=== PATIENT | female | born 1990 | race Caucasian/White ===

== ENCOUNTER 2017-07-01 13:35 | Emergency (ER) | payer BC ==
[2017-07-01 14:31] LABS: Bilirubin Negative (Negative); Blood, Urine Negative (Negative); Glucose, Urine (Dipstick) Negative (Negative); Ketone, Urine Negative (Negative); Nitrite Negative (Negative); Protein, Urine (Dipstick) Negative (Neg-Trace); Urobilinogen 0.2 mg/dL (0.2-1.0)
[2017-07-01 14:47] LABS: #Eosinphils 0.1 thou/uL (0.0-0.7); #Lymphocytes 2.5 thou/uL (1.20-3.40); #Monocytes 0.5 thou/uL (0.11-0.59); #Neutrophils 7.4 thou/uL (1.40-6.50); %Basophils 0.3 % (0.0-1.0); %Eosinophils 0.7 % (0.0-10.0); %Lymphocytes 24.1 % (21.0-51.0); %Monocytes 5.1 % (0.0-10.0); Hematocrit 41.8 % (36.0-47.0); Red Blood Cell (RBC) Count 4.34 mill/uL (4.20-5.40); White Blood Cell (WBC) Count 10.5 thou/uL (4.8-10.8)
[2017-07-01 15:17] LABS: Anion Gap 12 mmol/L (10-20); BUN (Urea Nitrogen) 8 mg/dL (7.0-18.7); Calc. Creatinine Clearance 0 mL/min (70-130); Calcium 9.3 mg/dL (7.8-10.44); Carbon Dioxide 23 mmol/L (22-29); Chloride 105 mmol/L (98-107); Estimated GFR-MDRD Greater than 90
[2017-07-01] MEDS ORDERED: Ondansetron HCl/PF 4 MG/2 ML Vial ONE (16:16)
--- NOTE | 2017-07-01 18:10 | ULT ---
PELVIC ULTRASOUND: Date: 07/01/17 COMPARISON: 06/26/14. HISTORY: Lower abdominal pain and cramping x4-5 days. Patient is approximately 6 weeks . TECHNIQUE: Transabdominal and endovaginal imaging of the pelvis is performed. Ovaries are interrogated with Gra y scale, color flow, Doppler imaging, and spectral waveform analysis. FINDINGS: Uterus is identified, without myometrial masses. Uterus measures 9.1 x 5.2 x 5.3 cm. A definite yolk sac is not appreciated. [place]-rump length is 0.38 cm, corresponding to a gestational age of 6 weeks /0 days. Adjacent to the right ovary, there is an anechoic focus measuring 1.0 x 1.0 x 1.2 cm. The p ossibility of a paraovarian cyst is raised. Other etiologies cannot be excluded. Overall, the right ovary measures 3.3 x 2.6 x 2.4 cm. Left ovary measure 1.4 x 2.7 x 1.4 cm. There are some nonspecific echogenic foci in the uterine myometrium, favoring calcifications. There is no free fluid. OVARIAN DOPPLER: Vascular flow to both ovaries. IMPRESSION: 1. Sonographic evidence of a gestational sac within the endometrium. There is echogenic focus, line ar in appearance, which may represent a pole. Based upon the crown-rump length, gestational ag e would be 6 weeks/0 days. heart tones are not appreciated. Differential considerations includ e an early intrauterine versus a failed . Follow-up ultrasounds and serial beta H CGs are recommended. 2. Anechoic focus in the right adnexa, paraovarian in location. Paraovarian cyst is favored. Nevert heless, close surveillance is recommended to exclude the possibility of a concomitant ectopic pregna ncy. POS: [facility]
== END 2017-07-01 18:00 | disposition home or self-care (01) ==
LOC: ERS 13:35
DX: O23.591 Infection of other part of genital tract in pregnancy, first trimester (principal); B96.89 Other specified bacterial agents as the cause of diseases classified elsewhere; O99.331 Smoking (tobacco) complicating pregnancy, first trimester; F17.210 Nicotine dependence, cigarettes, uncomplicated
CPT/HCPCS: 36415; 76856; 80048; 81003; 84702; 85025; 87480; 87491; 87510; 87591; 87660; 96361; 96374; J2405

== ENCOUNTER 2018-11-23 17:45 | Emergency (ER) | payer BC, SELFPAY ==
[~2018-11-23 17:45] MED LIST: ISOVUE-370 76%-LOCM 1 ML ONE
[2018-11-23] MEDS ORDERED: Ondansetron PF 4 MG/2 ML Vial ONE (19:48)
[2018-11-23] MEDS ORDERED: Morphine 4 MG/ML VIAL ONE ×2 (19:48→21:43)
[2018-11-23 20:06] LABS: #Basophils 0.1 thou/uL (0.0-0.2); #Eosinphils 0.1 thou/uL (0.0-0.7); #Lymphocytes 3.7 thou/uL (1.20-3.40); #Monocytes 0.5 thou/uL (0.11-0.59); #Neutrophils 6.3 thou/uL (1.40-6.50); %Basophils 0.6 % (0.0-1.0); %Eosinophils 1.3 % (0.0-10.0); %Lymphocytes 34.8 % (21.0-51.0); %Monocytes 4.5 % (0.0-10.0); %Neutrophils 58.9 % (42.0-75.0); Mean Corpuscular HGB CONC 31.3 g/dL (32.0-36.0); Mean Corpuscular Hemoglobin 28.3 pg (27.0-31.0); Mean Corpuscular Volume 90.5 fL (78.0-98.0); Mean Platelet Volume 7.1 fL (7.4-10.4); Platelet Count 358 thou/uL (130-400); RBC Distribution Width 12.1 % (11.5-14.5); Red Blood Cell (RBC) Count 4.25 mill/uL (4.20-5.40); White Blood Cell (WBC) Count 10.7 thou/uL (4.8-10.8)
[2018-11-23 20:19] LABS: BHCG - Serum Negative (NEGATIVE); Pregs Control Background? CLEAR/WHITE (CLR/WHITE); Pregs Control Bar Appear? YES (CONTROL BAR)
[2018-11-23 20:24] LABS: Bilirubin Negative (Negative); Blood, Urine Negative (Negative); Clarity CLEAR (Clear); Glucose, Urine (Dipstick) Negative (Negative); Leukocyte Negative (Negative); Nitrite Negative (Negative); Protein, Urine (Dipstick) Negative (Neg-Trace); Specific Gravity, Urine 1.016 (1.002-1.036)
[2018-11-23 20:31] LABS: ALT (SGPT) 20 U/L (8-55); AST (SGOT) 21 U/L (5-34); Albumin 4.3 g/dL (3.5-5.0); Alkaline Phosphatase 100 U/L (40-150); Anion Gap 15 mmol/L (10-20); BUN (Urea Nitrogen) 10 mg/dL (7.0-18.7); Bilirubin, Total 0.3 mg/dL (0.2-1.2); Calc. Creatinine Clearance 0 mL/min (70-130); Calcium 9.5 mg/dL (7.8-10.44); Carbon Dioxide 24 mmol/L (22-29); Chloride 105 mmol/L (98-107); Estimated GFR-MDRD Greater than 90; Globulin 3.4 g/dL (2.4-3.5); Glucose 66 mg/dL (70-105); Potassium 3.6 mmol/L (3.5-5.1); Protein, Total 7.7 g/dL (6.0-8.3); Sodium 140 mmol/L (136-145)
--- NOTE | 2018-11-23 21:05 | CT ---
HISTORY: Abdominal pain. Recent abdominoplasty. COMPARISON: CT abdomen and pelvis 07/15/18. FINDINGS: There is a midline seroma which is supraumbilical superficial to the linea alba in the subcutaneous f at anteriorly measuring 5.1 cm in transverse x 2 cm in AP dimension x approximately 9.5 cm in cranioc audad dimension. Lung bases are clear. No pericardial effusion. There is extensive skin thickening on the lower anterior abdominal wall as well as superficial fat ed douglas likely from recent abdominoplasty. Normal proximal small bowel rotation. Aortic contour is normal. No dilated loops of large or small bowel. No free intraperitoneal gas or fluid. Mass-like appearance of the terminal ileum measuring up to 3.2 cm although given patient's age and th is is new from the prior examinations, this may reflect a focal confluent area of stool. Trace free fluid in the pelvis likely physiologic. IMPRESSION: 1. Superficial soft tissue likely a seroma as described with adjacent soft tissue swelling and s kin thickening from recent abdominoplasty. Rectus muscles are intact. 2. Mass-like thickening of the terminal ileum. Given this patient's young age and this is new fr om the 2018 examination, this may reflect a focal confluent area of stool which does not contain gas. Nonemergent colonoscopy may be beneficial in this patient. POS: [facility]
[2018-11-23] MEDS ORDERED: Lidocaine 1% w/Epinephrine 1:100K 20 ML VIAL ONE (21:37)
--- NOTE | 2018-11-25 08:09 | ER ---
DATE OF SERVICE: SUBJECTIVE: The patient is 3 weeks status post abdominoplasty. She has sneezed this morning and has felt an acute pain in her supraumbilical region. This area had been previously noted to be a little swollen. The pain improved, but did not completely resolved. The patient presented to the emergency room. She is afebrile and resting comfortably with normal white count. CAT scan showed a fluid collection above the umbilicus in the subcutaneous space superficial to the linea alba and supraumbilical seroma following abdominoplasty. The patient has had a very attenuated abdominal wall. I did not want to attempt drainage of the seroma percutaneously. The umbilical incision was opened using aseptic technique under local anesthesia. A Aurora drain was placed, only very small amount of fluid was expressed. There was no surrounding erythema or induration. The patient was reassured and told to follow up as scheduled. Job ID: [id number]
== END 2018-11-23 22:38 | disposition home or self-care (01) ==
LOC: ERS 18:35
DX: K91.872 Postprocedural seroma of a digestive system organ or structure following a digestive system procedure (principal); Z79.891 Long term (current) use of opiate analgesic; Z79.899 Other long term (current) drug therapy
CPT/HCPCS: 74177; 80053; 81003; 84703; 85025; 96374; 96375; 96376; J2001; J2270; J2405; Q9966

== ENCOUNTER 2020-08-24 19:45 | Observation (INO) | payer BC ==
[2020-08-24] MEDS ORDERED: Morphine 4 MG/ML VIAL ONE ×2 (19:50→22:38)
[2020-08-24] MEDS ORDERED: Ondansetron PF 4 MG/2 ML Vial ONE ×2 (19:50→22:38)
[2020-08-24] MEDS ORDERED: HYDROcodone/Acetaminophen 5/325 mg Tablet PO PRN ×2 (22:45)
[2020-08-24] MEDS ORDERED: Acetaminophen 325 MG TAB PO PRN (22:45)
[2020-08-24] MEDS ORDERED: Ondansetron ODT 4 MG TAB SL PRN (22:45)
[2020-08-24] MEDS ORDERED: Ondansetron PF 4 MG/2 ML Vial IVP PRN (22:45)
[2020-08-24] MEDS: Sodium Chloride 0.9% 1,000 ML IV SCH (23:20)
[2020-08-25] MEDS ORDERED: Morphine 4 MG/ML VIAL ONE (04:26)
[2020-08-25] MEDS ORDERED: Ketorolac Tromethamine 30 MG/ML VIAL ONE (04:26)
[2020-08-25] MEDS ORDERED: Ketorolac Tromethamine 30 MG/ML VIAL IVP SCH (04:30)
[2020-08-25] MEDS ORDERED: Morphine 4 MG/ML VIAL SLOW IVP PRN (04:30)
[2020-08-25] MEDS ORDERED: Ondansetron PF 4 MG/2 ML Vial ONE ×2 (04:31→09:49)
[2020-08-25] MEDS: Sodium Chloride 0.9% 1,000 ML IV SCH (06:58)
[2020-08-25] MEDS ORDERED: Acetaminophen 500 MG TAB PO PRN (07:33)
[2020-08-25] MEDS ORDERED: Ondansetron ORAL SOLN. 4 MG/5 ML UDCUP PO PRN (07:33)
[2020-08-25] MEDS ORDERED: Ondansetron PF 4 MG/2 ML Vial IVP PRN (07:33)
[2020-08-25] MEDS ORDERED: Ondansetron ODT 8 MG TAB SL PRN (07:33)
[2020-08-25] MEDS ORDERED: Midazolam HCl 2 mg/2 ml Vial ONE (08:58)
[2020-08-25] MEDS ORDERED: Fentanyl 100 MCG/2 ML VIAL ONE ×2 (08:58→12:47)
[2020-08-25] MEDS ORDERED: Piperacillin/Tazobactam 3.375 GM VIAL ONE (09:00)
[2020-08-25] MEDS ORDERED: Enoxaparin Sodium 40 MG/0.4 ML SYRINGE SC SCH (09:00)
[2020-08-25] MEDS ORDERED: Piperacillin/Tazobactam 3.375 GM in Sodium Chloride 0.9% 100 ML IVPB SCH (09:00)
[2020-08-25] MEDS ORDERED: Scopolamine 1.5 mg/72 hour Patch TD SCH (09:00)
[2020-08-25] MEDS ORDERED: Enoxaparin Sodium 40 MG/0.4 ML SYRINGE ONE (09:00)
[2020-08-25 09:09] LABS: SARS-CoV-2 MS2 Positive; SARS-CoV-2 N Gene Negative; SARS-CoV-2 S Gene Negative; SARS-CoV-2 by NAA Not Detected (NotDetected); SARS-CoV-2 orf1ab Negative
[2020-08-25] MEDS ORDERED: Succinylcholine 200 MG/10 ml SYRINGE FS ONE (09:49)
[2020-08-25] MEDS ORDERED: Rocuronium Bromide 10 MG/ML (10ML VIAL) ONE (09:49)
[2020-08-25] MEDS ORDERED: Glycopyrrolate 0.2 MG/ML 5 ML SYRINGE ONE (09:49)
[2020-08-25] MEDS ORDERED: Lidocaine 1% PF 5 ML VIAL ONE (09:49)
[2020-08-25] MEDS ORDERED: Esmolol 100 MG/10 ML VIAL ONE (09:49)
[2020-08-25] MEDS ORDERED: Dexamethasone 20 MG/5 ML VIAL ONE (09:49)
[2020-08-25] MEDS ORDERED: PROPOFOL 200 MG/20 ML VIAL ONE (09:49)
[2020-08-25] MEDS ORDERED: Lidocaine 1% w/Epinephrine 1:100K 20 ML VIAL ONE (09:53)
[2020-08-25] MEDS ORDERED: Bupivacaine PF 0.5% 30 ML VIAL ONE (09:53)
--- NOTE | 2020-08-25 10:26 | HP ---
Rosaura Ames is a 29-year-old female who presents with 24-hour history of right lower quadrant pain, nausea, increased pain with movement. She is seen in the emergency room with a normal white count of 7. CAT scan revealed dilated appendix without inflammatory changes. There was no adnexal pathology to attribute her pain to. She had a moderate amount of stool. The pain is not resolved since yesterday and she required analgesics. She has been receiving antibiotics. ALLERGIES: SULFA. SOCIAL HISTORY: Tobacco, none. She vapes. Alcohol, none. MEDICATIONS: Listed as hydrocodone at home. PAST SURGICAL HISTORY: C-sections, abdominoplasty, umbilical hernia repair. PAST MEDICAL HISTORY: Noncontributory except for ovarian cyst. FAMILY HISTORY: Noncontributory. REVIEW OF SYSTEMS: [employer] noncontributory. 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 PHYSICAL EXAMINATION: VITAL SIGNS: Weight 90 kg, blood pressure 133/86, temperature 98.7, respiratory rate 20, heart rate 103. HEAD, EARS, EYES, NOSE, AND THROAT: Unremarkable. LUNGS: Clear to auscultation. CARDIAC: Regular rate and rhythm without murmur or gallop. ABDOMEN: Soft. Tenderness in the right lower quadrant with guarding, mild. EXTREMITIES: Unremarkable. LABORATORY DATA: As noted above, white count 7, hemoglobin 14.9. Basic metabolic profile normal. ASSESSMENT AND PLAN: Acute appendicitis by CAT scan, but clinically suspect. We would recommend laparoscopic video appendectomy. Options are observation versus surgery discussed. Plan is for laparoscopic appendectomy. Risks of infection, bleeding, visceral injury, open procedure, possible normal appendix discussed, she consents. Job ID: [id number]
[2020-08-25] MEDS ORDERED: Ketorolac Tromethamine 30 MG/ML VIAL IVP PRN (10:30)
[2020-08-25] MEDS ORDERED: Meperidine HCl/PF 25 MG/ML VIAL ONE (12:36)
[2020-08-25] MEDS ORDERED: Ibuprofen 600 MG TAB PO PRN (13:12)
[2020-08-25] MEDS ORDERED: traMADol HCl 50 MG TAB PO PRN ×2 (13:12)
[2020-08-25] MEDS ORDERED: HYDROcodone/Acetaminophen 5/325 mg Tablet ONE (14:01)
--- NOTE | 2020-08-25 17:01 | OP ---
DATE OF PROCEDURE: 08/25/2020 PREOPERATIVE DIAGNOSES: Abdominal pain, dilated appendix, possible early appendicitis. POSTOPERATIVE DIAGNOSES: Abdominal pain, dilated appendix, possible early appendicitis with grossly normal appendix. PROCEDURES PERFORMED: Laparoscopic video appendectomy and diagnostic laparoscopy noting normal ovaries, normal pelvis, absence of Meckel diverticulum, no gross pathology. ANESTHESIA: General, local 0.5% Marcaine 30 mL mixed with 1% Xylocaine with epinephrine 20 mL. DESCRIPTION OF PROCEDURE: The patient was taken to the operating room, where under general anesthesia, Aponte catheter was placed at the beginning of the procedure and removed at the end. The abdomen was prepared with ChloraPrep and draped in routine fashion. Local anesthetic was infiltrated in the skin and subcutaneous tissue about the operative sites. Infraumbilical incision was made. Pneumoperitoneum to 15 mmHg was obtained with a Veress needle, replaced with a 5 port. Right lateral subcostal incision was made and a 5 port placed. Suprapubic incision was made and a 12 port placed under laparoscopic visualization. Appendix appeared to be normal. Mesoappendix was taken down with the LigaSure. The stump of the appendix was divided with the cecal base with the Endo-NIKITA blue load stapler. Cecal stump was hemostatic after clip application. Appendix was removed and submitted to Pathology. It appeared grossly normal. Pelvis was inspected, noting noted ovaries of right and left normal. Uterus normal. Tubes normal. Small bowel inspected for 4 feet. The terminal ileum was noted to be without Meckel diverticulum. No other gross pathology noted. Irrigant and pneumoperitoneum evacuated. All instruments were removed. All skin incisions were approximated with interrupted subdermal 4-0 Monocryl after suprapubic fascia was approximated with 0 Vicryl UR-2 needle. Job ID: [id number]
--- NOTE | 2020-08-26 03:30 | DIS ---
DATE OF ADMISSION: 08/24/2020 DATE OF DISCHARGE: 08/25/2020 DISCHARGE DIAGNOSIS: Abdominal pain of uncertain etiology. CAT scan referring hospital revealed dilated appendix without inflammatory changes, not reported on CAT scan was moderate constipation, no adnexal etiology or pain. PROCEDURE: Laparoscopic video appendectomy. HISTORY: A 29-year-old female presents with 24-hour history of right lower quadrant pain, anorexia, nausea, increased pain with movement. CAT scan referring hospital revealed dilated appendix. There were no inflammatory changes, not reported on CAT scan was moderate constipation appreciated on review. Adnexa were normal. The patient was hospitalized overnight, and by the next morning, was still having the abdominal pain and tenderness in right lower quadrant, thus underwent laparoscopic appendectomy, noting grossly normal appendix. Adnexa and ovaries were normal. The terminal ileum inspected without Meckel's diverticulum. No other abnormalities noted. The patient discharged home at this time with Tylenol and ibuprofen over the counter for pain; Ultram pills if needed, #20, one refill. Instructed to take MiraLAX daily, drink plenty of fluids, be active, no activity restrictions, and to take only few doses of magnesium citrate. The patient will follow up in my office in 1 to 2 weeks. Job ID: [id number]
[2020-08-26] MEDS ORDERED: Polyethylene Glycol 3350 17 GM Packet PO SCH (09:00)
== END 2020-08-25 14:25 | disposition home or self-care (01) ==
LOC: ERS 19:45 → ERHOLD 21:27 → INTOOBSV 21:27 → SURG A 08-25 11:20
PROVIDERS: ADMIT Specialist; ATTEND Specialist
PROC: 0DTJ4ZZ Resection of Appendix, Percutaneous Endoscopic Approach (ICD-10-PCS; principal; 2020-08-25)
DX: K37 Unspecified appendicitis (principal); F17.290 Nicotine dependence, other tobacco product, uncomplicated; Z88.2 Allergy status to sulfonamides; Z20.828 Contact with and (suspected) exposure to other viral communicable diseases
CPT/HCPCS: 87635; 88304; 93005; 96372; 96374; 96375; 96376; G0378; J1100; J1650; J1885; J2175; J2250; J2270; J2405; J2543; J2704; J3010; J3490; S0020; U0003